=== PATIENT | male | born 1955 | race Caucasian/White ===

== ENCOUNTER 2018-10-28 11:02 | Inpatient (IN) | payer OTHER ==
[2018-10-28 13:30] LABS: ADD MAN DIFF? NO
[2018-10-28 13:36] LABS: WHITE BLOOD COUNT 19.5 10^3/ul (4.8-10.8)
[2018-10-28 13:36] LABS: BASOPHIL # 0.1 10^3/ul (0.0-0.1); BASOPHILS % 0.3 % (0.0-2.0); EOSINOPHILS % 0.1 % (0.0-7.0); HEMATOCRIT 37.4 % (42.0-52.0); HEMOGLOBIN 12.8 g/dl (14.0-18.0); LYMPHOCYTES # 1.2 10^3/ul (0.8-2.9); LYMPHOCYTES % 6.3 % (15.0-51.0); MEAN CORPUSCULAR HEMOGLOBIN 28.3 pg (29.0-33.0); MEAN CORPUSCULAR HGB CONC 34.2 g/dl (32.0-37.0); MEAN CORPUSCULAR VOLUME 82.6 fl (82.0-101.0); MEAN PLATELET VOLUME 10.2 fl (7.4-10.4); MONOCYTE # 0.7 10^3/ul (0.3-0.9); MONOCYTES % 3.3 % (0.0-11.0); NEUTROPHIL # 17.3 10^3/ul (1.6-7.5); NEUTROPHILS % 88.9 % (39.0-77.0); PLATELET COUNT 357 10^3/UL (140-415); RED BLOOD COUNT 4.53 10^6/ul (4.70-6.10); RED CELL DISTRIBUTION WIDTH 12.7 % (11.5-14.5)
[2018-10-28] MEDS: FAMOTIDINE 20 MG INJ IV (13:36)
[2018-10-28] MEDS: EPINEPHrine 1 MG INJ IM (13:37)
[2018-10-28 13:56] LABS: ALANINE AMINOTRANSFERASE 23 IU/L (13-69); ALBUMIN 3.9 g/dl (3.3-4.9); ALBUMIN/GLOBULIN RATIO 1.02; ALKALINE PHOSPHATASE 91 IU/L (42-121); ANION GAP 15 (5-13); ASPARTATE AMINO TRANSFERASE 51 IU/L (15-46); BLOOD UREA NITROGEN 56 mg/dl (7-20); CALCIUM 9.1 mg/dl (8.4-10.2); CARBON DIOXIDE 24 mmol/L (21-31); CHLORIDE 89 mmol/L (97-110); CREATININE 3.71 mg/dl (0.61-1.24); Estimated GFR 17 mL/min (>60); GLUCOSE 179 mg/dl (70-220); POTASSIUM 3.6 mmol/L (3.5-5.1); SODIUM 128 mmol/L (135-144); TOTAL PROTEIN 7.7 g/dl (6.1-8.1)
[2018-10-28 14:09] LABS: C-REACTIVE PROTEIN 13.6 mg/dl (0.0-0.9)
[2018-10-28] MEDS: SOD CHLORIDE 0.9% 1,000 ML IV ×2 (14:28→20:53)
[2018-10-28 14:49] LABS: COMPLEMENT C4 40 mg/dl (14-44)
[2018-10-28] MEDS: AMPICILLIN/SULB 3 GM/NS (PMX) 100 ML IVPB ×2 (16:31→23:07)
[2018-10-28] MEDS: ONDANSETRON 4 MG INJ IV (17:37)
[2018-10-28] MEDS: morphine 4 MG/ML VIAL IV (17:37)
[2018-10-28] MEDS ORDERED: ONDANSETRON 4 MG INJ IV ×2 (18:00→18:30)
[2018-10-28] MEDS ORDERED: ACETAMINOPHEN 325 MG TAB PO ×2 (18:00→18:30)
[2018-10-28] MEDS ORDERED: HYDROCODONE/APAP (5/325) TAB PO (18:30)
[2018-10-28] MEDS ORDERED: NACL 0.9% 3 ML SYG IV (18:30)
[2018-10-28] MEDS ORDERED: DOCUSATE SODIUM 100 MG CAP PO (18:30)
[2018-10-28] MEDS ORDERED: ZOLPIDEM 5 MG TAB PO (18:30)
[2018-10-28] MEDS: METHYLPREDNISOLONE 125 MG INJ IV (23:14)
[2018-10-28] MEDS: DIPHENHYDRAMINE 50 MG INJ IV (23:15)
[2018-10-29] MEDS: morphine 2 MG INJ IV (02:25)
[2018-10-29] MEDS: CEPASTAT LOZENGE MT ×2 (02:25→21:21)
[2018-10-29] MEDS: SOD CHLORIDE 0.9% 1,000 ML IV ×3 (04:28→21:20)
[2018-10-29] MEDS: METHYLPREDNISOLONE 125 MG INJ IV ×3 (06:14→21:21)
[2018-10-29] MEDS: DIPHENHYDRAMINE 50 MG INJ IV ×2 (06:16→13:43)
[2018-10-29 07:14] LABS: ADD MAN DIFF? NO
[2018-10-29 07:17] LABS: ABNORMAL IP MESSAGE 1; BASOPHILS % 0.2 % (0.0-2.0); HEMATOCRIT 37.5 % (42.0-52.0); HEMOGLOBIN 12.8 g/dl (14.0-18.0); LYMPHOCYTES # 1.4 10^3/ul (0.8-2.9); LYMPHOCYTES % 6.3 % (15.0-51.0); MEAN CORPUSCULAR HEMOGLOBIN 28.6 pg (29.0-33.0); MEAN CORPUSCULAR HGB CONC 34.1 g/dl (32.0-37.0); MEAN CORPUSCULAR VOLUME 83.9 fl (82.0-101.0); MEAN PLATELET VOLUME 10.2 fl (7.4-10.4); MONOCYTE # 0.7 10^3/ul (0.3-0.9); MONOCYTES % 3.2 % (0.0-11.0); NEUTROPHIL # 20.2 10^3/ul (1.6-7.5); NEUTROPHILS % 89.4 % (39.0-77.0); PLATELET COUNT 366 10^3/UL (140-415); POSITIVE DIFF @See below; RED BLOOD COUNT 4.47 10^6/ul (4.70-6.10); RED CELL DISTRIBUTION WIDTH 13.2 % (11.5-14.5)
[2018-10-29 07:17] LABS: WHITE BLOOD COUNT 22.6 10^3/ul (4.8-10.8)
[2018-10-29 07:38] LABS: HEMOGLOBIN A1C 6.3 % (0-5.9)
[2018-10-29 07:47] LABS: ANION GAP 14 (5-13); BLOOD UREA NITROGEN 50 mg/dl (7-20); CALCIUM 8.5 mg/dl (8.4-10.2); CARBON DIOXIDE 23 mmol/L (21-31); CHLORIDE 99 mmol/L (97-110); CREATININE 2.69 mg/dl (0.61-1.24); Estimated GFR 24 mL/min (>60); GLUCOSE 194 mg/dl (70-220); PHOSPHORUS 5.7 mg/dl (2.5-4.9); POTASSIUM 4.2 mmol/L (3.5-5.1); SODIUM 136 mmol/L (135-144)
[2018-10-29 08:04] LABS: FREE THYROXINE INDEX (Calc) 2.87 ug/ml (0.65-3.89); T4 (THYROXINE) 6.1 ug/dl (5.5-11.0)
[2018-10-29] MEDS: AMPICILLIN/SULB 3 GM/NS (PMX) 100 ML IVPB ×2 (08:29→21:20)
[2018-10-30 05:28] LABS: ADD MAN DIFF? NO
[2018-10-30 05:29] LABS: WHITE BLOOD COUNT 20.9 10^3/ul (4.8-10.8)
[2018-10-30 05:29] LABS: BASOPHILS % 0.1 % (0.0-2.0); HEMOGLOBIN 12.7 g/dl (14.0-18.0); LYMPHOCYTES # 1.1 10^3/ul (0.8-2.9); LYMPHOCYTES % 5.2 % (15.0-51.0); MEAN CORPUSCULAR HEMOGLOBIN 28.6 pg (29.0-33.0); MEAN CORPUSCULAR HGB CONC 33.4 g/dl (32.0-37.0); MEAN CORPUSCULAR VOLUME 85.6 fl (82.0-101.0); MEAN PLATELET VOLUME 10.3 fl (7.4-10.4); MONOCYTE # 0.6 10^3/ul (0.3-0.9); MONOCYTES % 3.1 % (0.0-11.0); NEUTROPHIL # 18.9 10^3/ul (1.6-7.5); NEUTROPHILS % 90.4 % (39.0-77.0); PLATELET COUNT 377 10^3/UL (140-415); RED BLOOD COUNT 4.44 10^6/ul (4.70-6.10); RED CELL DISTRIBUTION WIDTH 13.3 % (11.5-14.5)
[2018-10-30] MEDS: METHYLPREDNISOLONE 125 MG INJ IV ×2 (05:46→13:58)
[2018-10-30] MEDS: CEPASTAT LOZENGE MT ×2 (05:46→09:07)
[2018-10-30 06:29] LABS: ANION GAP 9 (5-13); BLOOD UREA NITROGEN 47 mg/dl (7-20); CALCIUM 8.5 mg/dl (8.4-10.2); CARBON DIOXIDE 28 mmol/L (21-31); CHLORIDE 103 mmol/L (97-110); CREATININE 2.27 mg/dl (0.61-1.24); Estimated GFR 29 mL/min (>60); GLUCOSE 205 mg/dl (70-220); POTASSIUM 4.1 mmol/L (3.5-5.1); SODIUM 140 mmol/L (135-144)
[2018-10-30] MEDS: AMPICILLIN/SULB 3 GM/NS (PMX) 100 ML IVPB (09:07)
[2018-10-30] MEDS: SOD CHLORIDE 0.9% 1,000 ML IV (09:07)
== END 2018-10-30 14:45 | disposition home or self-care (01) | DRG 916 ==
LOC: FTE 11:02 → PP2 17:53
DX: T78.3XXA Angioneurotic edema, initial encounter (principal); E87.1 Hypo-osmolality and hyponatremia; N17.9 Acute kidney failure, unspecified; M27.2 Inflammatory conditions of jaws; T88.7XXA Unspecified adverse effect of drug or medicament, initial encounter; T43.3X5A Adverse effect of phenothiazine antipsychotics and neuroleptics, initial encounter; N18.9 Chronic kidney disease, unspecified; N20.0 Calculus of kidney; Y84.8 Other medical procedures as the cause of abnormal reaction of the patient, or of later complication, without mention of misadventure at the time of the procedure; Y92.019 Unspecified place in single-family (private) house as the place of occurrence of the external cause
CPT/HCPCS: 70490; 71045; 76775; 80048; 80053; 83036; 83605; 83735; 84100; 84436; 84479; 85025; 85651; 86140; 86160; 87040; 87880; 90686; 96361; 96365; 96372; 96375; 99285-25; G0378